=== PATIENT | female | born 1955 | race Caucasian/White ===

== ENCOUNTER → 2020-01-07 14:26 | Outpatient (BNVA) | payer MEDICARE, SELFPAY | PROVIDERS: Family Provider Family Medicine; PCP Family Medicine; Visit Provider Internal Medicine Rheumatology | DX: M32.9 Systemic lupus erythematosus, unspecified (principal); R76.8 Other specified abnormal immunological findings in serum; Z79.899 Other long term (current) drug therapy; M12.00 Chronic postrheumatic arthropathy [Jaccoud], unspecified site | CPT/HCPCS: 99214 ==

== ENCOUNTER 2020-01-08 13:08 | Outpatient (CLI) | payer MEDICARE, SELFPAY ==
--- NOTE | 2020-01-08 13:20 | XR_ITS ---
WS: [id number] FOOT RIGHT TECHNIQUE: 3 views of the right foot CLINICAL INFORMATION: joint pain COMPARISON: None. FINDINGS: Mild soft tissue edema. Hallux valgus. Hammertoe deformities. Joint space narrowing worse involving t he second third and fourth PIP and DIP joints. MTP joints appear normal. Normal metatarsals. Tiny lauryn ntar calcaneal spur. XR/XR foot RT min 3V* [id number] IMPRESSION: 1. Mild hallux valgus. 2. Hammertoe deformities with joint space narrowing worse involving the second third and fourth phalanges.
--- NOTE | 2020-01-08 13:20 | XR_ITS ---
WS: [id number] HAND LEFT TECHNIQUE: 3 views of the left hand CLINICAL INFORMATION: joint pain COMPARISON: None. FINDINGS: Osteopenia. Narrowing of the radiocarpal joint. Advanced degenerative arthritis at the radiocarpal mark int and distal radial ulnar joint. Advanced arthritis the first CMC with deformity and subluxation at the first CMC joint. First metacarpal is subluxed to the level of the scaphoid. Mild joint space harley rowing involving the DIP joints. PIP joints are better preserved. XR/XR hand LT min 3V* [id number] IMPRESSION: 1. Chronic deformity and subluxation of the first metacarpal at the CMC joint with chronic appearing deformity. 2. Advanced degenerative narrowing involving the radiocarpal joint. 3. Joint space narrowing worse involving the DIP joints worse at the second DI P joint. 4. Osteopenia.
--- NOTE | 2020-01-08 13:20 | XR_ITS ---
WS: [id number] FOOT LEFT TECHNIQUE: 3 views of the left foot CLINICAL INFORMATION: joint pain COMPARISON: None. FINDINGS: Osteopenia. No acute fractures. Narrowing of the IP joints. Normal metatarsals. Normal tarsal metatar win alignment. Mild hallux valgus. Osteopenia. XR/XR foot LT min 3V* [id number] IMPRESSION: Mild degenerative arthritis with osteopenia
--- NOTE | 2020-01-08 13:20 | XR_ITS ---
WS: [id number] HAND RIGHT TECHNIQUE: 3 views of the right hand CLINICAL INFORMATION: joint pain COMPARISON: None. FINDINGS: Advanced degenerative arthritis radial carpal joint and distal radial ulnar joint with joint space na rrowing. Osteopenia. Advanced arthritis the first CMC with chronic subluxation at the first, second a nd third MCP joints. Advanced degenerative narrowing involving the CMC joints. PIP and DIP joint narr owing. Mild subluxation at the second DIP. XR/XR hand RT min 3V* [id number] IMPRESSION: 1. Advanced degenerative narrowing at the radiocarpal joint and distal radioul harley joint. 2. Chronic subluxation involving the first second and third MCP joints. 3. IP joint narrowing with subluxation worse involving the second DIP. 4. Advanced degenerative narrowing involving the CMC joints worse involving th e first CMC
== END 2020-01-08 13:09 | disposition home or self-care (01) ==
LOC: WPI 13:13
PROVIDERS: Family Provider Family Medicine; PCP Family Medicine; Visit Provider Internal Medicine Rheumatology
DX: M25.50 Pain in unspecified joint (principal); S63.091A Other subluxation of right wrist and hand, initial encounter; M20.002 Unspecified deformity of left finger(s); S63.102A Unspecified subluxation of left thumb, initial encounter; M85.842 Other specified disorders of bone density and structure, left hand; M19.072 Primary osteoarthritis, left ankle and foot; M85.872 Other specified disorders of bone density and structure, left ankle and foot; M20.11 Hallux valgus (acquired), right foot; M20.41 Other hammer toe(s) (acquired), right foot; X58.XXXA Exposure to other specified factors, initial encounter
CPT/HCPCS: 73130; 73630

== ENCOUNTER → 2020-07-09 13:21 | Outpatient (BNVA) | payer MEDICARE, SELFPAY | PROVIDERS: Family Provider Family Medicine; PCP Family Medicine; Visit Provider Internal Medicine Rheumatology | DX: M32.9 Systemic lupus erythematosus, unspecified (principal); M19.90 Unspecified osteoarthritis, unspecified site; Z79.899 Other long term (current) drug therapy; R76.8 Other specified abnormal immunological findings in serum | CPT/HCPCS: 99214 ==

== ENCOUNTER → 2020-11-09 12:53 | Outpatient (BNVA) | payer MEDICARE, SELFPAY | PROVIDERS: Family Provider Family Medicine; PCP Family Medicine; Visit Provider Internal Medicine Rheumatology | DX: M32.9 Systemic lupus erythematosus, unspecified (principal); M12.00 Chronic postrheumatic arthropathy [Jaccoud], unspecified site; R76.8 Other specified abnormal immunological findings in serum; Z79.899 Other long term (current) drug therapy; M19.90 Unspecified osteoarthritis, unspecified site | CPT/HCPCS: 73562; 99214 ==

== ENCOUNTER 2020-11-09 14:10 | Outpatient (CLI) | payer MEDICARE, SELFPAY ==
--- NOTE | 2020-11-09 14:21 | XRR_ITS ---
PROCEDURE INFORMATION: Exam: XR Right Knee Exam date and time: 11/09/2020 2:28 PM Age: 65 years old Clinical indication: Screening exam; Z79.899 - other retirement (current) drug therapy TECHNIQUE: Imaging protocol: XR Right knee. Views: 3 views. COMPARISON: No relevant prior studies available. FINDINGS: Bones/joints: [id number] medial knee compartment primary osteoarthritis. Mild to moderate patellofemoral primary osteoarthritis. Possible 1.1 x 0.7 cm intra-articular loose body in the superior portion of the patellofemoral joint noted only on the lateral view. Soft tissues: Normal. XR/XR knee RT 3V* [id number] IMPRESSION: 1. [id number] medial knee compartment primary osteoarthritis. 2. Mild to moderate patellofemoral primary osteoarthritis. 3. Possible 1.1 x 0.7 cm intra-articular loose body in the superior portion of the patellofemoral joint noted only on the lateral view.
--- NOTE | 2020-11-09 14:21 | XRR_ITS ---
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 Views: 3 views. COMPARISON: No relevant prior studies available. FINDINGS: Bones/joints: Mild to moderate medial knee compartment primary osteoarthritis. Mild patellofemoral compartment primary osteoarthritis. Soft tissues: Normal. XR/XR knee LT 3V* [id number] IMPRESSION: 1. Mild to moderate medial knee compartment primary osteoarthritis. 2. Mild patellofemoral compartment primary osteoarthritis.
== END 2020-11-09 14:11 | disposition home or self-care (01) ==
LOC: RAD 14:19
PROVIDERS: PCP Family Medicine; Visit Provider Internal Medicine Rheumatology
DX: M19.90 Unspecified osteoarthritis, unspecified site (principal); M32.9 Systemic lupus erythematosus, unspecified; Z79.899 Other long term (current) drug therapy
CPT/HCPCS: 73562

== ENCOUNTER → 2021-03-09 13:39 | Outpatient (BNVA) | payer MEDICARE, SELFPAY | PROVIDERS: PCP Family Medicine; Visit Provider Internal Medicine Rheumatology | DX: M32.9 Systemic lupus erythematosus, unspecified (principal); M12.00 Chronic postrheumatic arthropathy [Jaccoud], unspecified site; M19.90 Unspecified osteoarthritis, unspecified site; Z79.899 Other long term (current) drug therapy; Z71.89 Other specified counseling | CPT/HCPCS: 99214 ==

== ENCOUNTER → 2021-04-12 10:32 | Outpatient (BNVA) | payer MEDICARE, SELFPAY | PROVIDERS: PCP Family Medicine; Visit Provider Internal Medicine Pulmonary Disease | DX: Z01.812 Encounter for preprocedural laboratory examination (principal); Z20.822 Contact with and (suspected) exposure to COVID-19 | CPT/HCPCS: 87635 ==

== ENCOUNTER 2021-04-15 09:54 | Outpatient (CLI) | payer MEDICARE, SELFPAY ==
--- NOTE | 2021-04-15 10:16 | PFTS_ITS ---
Date of Study:04/15/21 Date of Dictation: MECHANICS: Forced vital capacity (FVC) is reduced. Forced expiratory volume in one second (FEV1) is reduced. FEV1/FVC is normal. FLOW VOLUME LOOP: Normal. LUNG VOLUMES: Total lung capacity (TLC) is reduced. Residual volume (RV) is reduced. DIFFUSING CAPACITY FOR CARBON MONOXIDE: Mild reduced. INTERPRETATION: The postbronchodilator spirometry is consistent with moderate restriction. There is no significant postbronchodilator response. Lung volumes are consistent with moderate restriction. Gas exchange (DLCO) is mildly reduced. MTDD
== END 2021-04-15 09:55 | disposition home or self-care (01) ==
LOC: RT 09:54
PROVIDERS: PCP Family Medicine; Visit Provider Internal Medicine Pulmonary Disease
DX: J84.9 Interstitial pulmonary disease, unspecified (principal)
CPT/HCPCS: 94060; 94726; 94729; J7611

== ENCOUNTER 2021-04-20 11:26 | Outpatient (CLI) | payer MEDICARE, SELFPAY ==
[2021-04-20 12:02] LABS: Blood Urea Nitrogen 10 mg/dL (8-23); Glomerular Filtration Rate 62.5 mL/min (90-130)
[2021-04-20] MEDS: iohexol 300 mg/mL 100 mL Btl IV (12:06)
--- NOTE | 2021-04-20 13:00 | CT_ITS ---
WS: [id number] CT ABDOMEN AND PELVIS WITH CONTRAST HISTORY: Follow up of splenic hemangiomas TECHNIQUE: Imaging performed of the abdomen and pelvis with IV contrast. Single phase imaging of the abdomen. Coronal and sagittal reformats are submitted. All CT scans at [facility] use at [address] one of these dose optimization techniques: automated exposure control; mA and/or kV adjustment per patient size (includes targeted exams where dose is matched to clinical indication); or iterative re construction. IV CONTRAST: Omnipaque 300; 95 mL IV. Oral contrast: Yes. DLP: 1146.67 mGycm COMPARISON: Chest CT 2020 Lower thorax: 3 mm nodule at the RIGHT lung base is unchanged. No pneumonia. Heart is normal size. Sm all hiatal hernia. Liver/biliary system: Normal size with no intrahepatic dilatation. Gallbladder: Normal. No gallstones or wall thickening. No pericholecystic fluid. Pancreas: Mild atrophy of the pancreas. No duct dilatation. Spleen: There are a few scattered low-attenuation lesions within the spleen. The largest towards the superior spleen measures 6 mm. These are too small to characterize but are of low attenuation. Adrenal glands: Normal. Right kidney: Normal. Left kidney: Normal. Aorta: Mild atherosclerosis with no aneurysm. Lymphadenopathy: There are a few small mildly hyperemic lymph nodes along the RIGHT common iliac nikunj n. Bilateral hyperemic and minimally prominent obturator lymph nodes. The largest on the RIGHT measur es 1.0 cm. Free fluid: None. GI tract: Diffuse constipation. No obstructive lesions are identified. Normal appendix. Abdominal wall: Unremarkable abdominal wall. No hernia. Pelvis: Urinary bladder is well distended. Uterus is atrophic as expected. Bones: LEFT degenerative rotoscoliosis of the lumbar spine. No destructive bone lesions. CT/CT abdomen pelvis w con* [id number] IMPRESSION: 1. Subcentimeter, nonspecific low-attenuation lesions in the spleen. These are most likely benign. 2. Mild diffuse constipation. 3. Indeterminate bilateral obturator lymph nodes. The largest measures 10 mm o n the RIGHT and is slightly hyperemic. 4. No ascites or free air. 5. Mild diffuse constipation.
== END 2021-04-20 11:27 | disposition home or self-care (01) ==
PROVIDERS: PCP Family Medicine; Visit Provider Internal Medicine
DX: D18.03 Hemangioma of intra-abdominal structures (principal); R63.4 Abnormal weight loss; K59.00 Constipation, unspecified; D73.89 Other diseases of spleen
CPT/HCPCS: 74177; 82565; 84520; Q9967

== ENCOUNTER 2021-06-22 16:55 | Outpatient (CLI) | payer MEDICARE, SELFPAY ==
[2021-06-22 17:28] LABS: Basophils % 0.7 %; Eosinophils # 0.1 10^3/uL (0.0-0.8); Eosinophils % 0.9 %; Hemoglobin 13.8 g/dL (11.5-15.3); Lymphocytes # 1.2 10^3/uL (0.8-4.8); Mean Corpuscular HGB Conc 32.1 g/dL (30.0-36.0); Mean Corpuscular Hemoglobin 29.9 pg (28.0-34.0); Mean Corpuscular Volume 93.1 fl (81-99); Mean Platelet Volume 9.6 fL (7.4-10.4); Monocytes # 0.3 10^3/uL (0.2-0.9); Monocytes % 4.9 %; Neutrophils # 4.19 10^3/uL (1.8-7.7); Neutrophils % 72.5 %; Nucleated Red Blood Cells % 0 %; Platelet Count 190 10^3/cmm (130-400); Red Blood Count 4.62 10^6/uL (4.1-5.3); Red Cell Distribution Width 12.8 % (12.1-15.1); White Blood Count 5.8 10^3/uL (4.0-10.0)
[2021-06-22 17:50] LABS: Alanine Aminotransferase 32 U/L (0-33); Albumin Level 4.6 g/dL (3.5-5.2); Alkaline Phosphatase 109 IU/L (35-105); Aspartate Amino Transferase 45 U/L (0-32); C Reactive Protein 2.9 mg/L (0.0-4.9); Glomerular Filtration Rate 62.5 mL/min (90-130); Total Bilirubin 0.4 mg/dL (0.15-1.2); Total Protein 7.6 g/dL (6.6-8.7)
== END 2021-06-22 16:56 | disposition home or self-care (01) ==
PROVIDERS: PCP Family Medicine; Visit Provider Internal Medicine Rheumatology
DX: M06.9 Rheumatoid arthritis, unspecified (principal); Z79.899 Other long term (current) drug therapy
CPT/HCPCS: 80076; 82565; 85025; 86140

== ENCOUNTER → 2021-09-14 09:39 | Outpatient (BNVA) | payer MEDICARE, SELFPAY | PROVIDERS: PCP Family Medicine; Visit Provider Internal Medicine Rheumatology | DX: M32.9 Systemic lupus erythematosus, unspecified (principal); Z79.899 Other long term (current) drug therapy; M12.041 Chronic postrheumatic arthropathy [Jaccoud], right hand; M12.04 Chronic postrheumatic arthropathy [Jaccoud], hand; I73.00 Raynaud's syndrome without gangrene; Z71.89 Other specified counseling | CPT/HCPCS: 99214 ==

== ENCOUNTER → 2021-10-25 13:06 | Outpatient (BNVA) | payer MEDICARE, SELFPAY | PROVIDERS: PCP Family Medicine; Visit Provider Internal Medicine Pulmonary Disease | DX: J84.89 Other specified interstitial pulmonary diseases (principal); M19.90 Unspecified osteoarthritis, unspecified site; I48.91 Unspecified atrial fibrillation; M32.9 Systemic lupus erythematosus, unspecified; M35.9 Systemic involvement of connective tissue, unspecified; R06.00 Dyspnea, unspecified; Z71.89 Other specified counseling; Z79.899 Other long term (current) drug therapy; I10 Essential (primary) hypertension; E78.5 Hyperlipidemia, unspecified | CPT/HCPCS: 99214 ==

== ENCOUNTER 2021-11-23 12:40 | Outpatient (CLI) | payer MEDICARE, SELFPAY ==
[2021-11-23 13:23] LABS: Basophils % 0.7 %; Eosinophils # 0.1 10^3/uL (0.0-0.8); Eosinophils % 2.4 %; Hematocrit 38.7 % (37.0-47.0); Hemoglobin 12.6 g/dL (11.5-15.3); Lymphocytes # 1.5 10^3/uL (0.8-4.8); Lymphocytes % 27.1 %; Mean Corpuscular HGB Conc 32.6 g/dL (30.0-36.0); Mean Corpuscular Volume 89.2 fl (81-99); Mean Platelet Volume 9.2 fL (7.4-10.4); Monocytes # 0.4 10^3/uL (0.2-0.9); Neutrophils # 3.35 10^3/uL (1.8-7.7); Neutrophils % 61.3 %; Nucleated Red Blood Cells % 0 %; Platelet Count 273 10^3/cmm (130-400); Red Blood Count 4.34 10^6/uL (4.1-5.3); Red Cell Distribution Width 13.2 % (12.1-15.1); White Blood Count 5.5 10^3/uL (4.0-10.0)
[2021-11-23 13:41] LABS: Alanine Aminotransferase 46 U/L (0-33); Albumin Level 4.2 g/dL (3.5-5.2); Alkaline Phosphatase 125 IU/L (35-105); Aspartate Amino Transferase 39 U/L (0-32); C Reactive Protein 8.7 mg/L (0.0-4.9); Globulin 3.5 g/dL (1.3-4.6); Glomerular Filtration Rate 71.5 mL/min (90-130); Total Bilirubin 0.3 mg/dL (0.15-1.2); Total Protein 7.7 g/dL (6.6-8.7)
== END 2021-11-23 12:41 | disposition home or self-care (01) ==
PROVIDERS: PCP Family Medicine; Visit Provider Internal Medicine Rheumatology
DX: M32.9 Systemic lupus erythematosus, unspecified (principal); Z79.899 Other long term (current) drug therapy
CPT/HCPCS: 80076; 82565; 85025; 86140

== ENCOUNTER 2021-12-07 09:39 | Outpatient (CLI) | payer MEDICARE, SELFPAY ==
--- NOTE | 2021-12-07 09:53 | MM_ITS ---
WS: [id number] BILATERAL SCREENING DIGITAL BREAST TOMOSYNTHESIS MAMMOGRAM WITH CAD HISTORY: SCREENING COMPARISON: 03/12/2020 and 02/19/2019 Bilateral CC and MLO views with tomosynthesis and synthetic mammography submitted. Computer aided det ection analyzed. Breast composition: There are scattered areas of fibroglandular density. No suspicious masses, microc alcifications or architectural distortion. Benign calcifications in each breast. MM/[place] [id number] IMPRESSION: BI-RADS: 2-Benign FOLLOW UP: 1 Year Follow-up
== END 2021-12-07 09:40 | disposition home or self-care (01) ==
PROVIDERS: PCP Family Medicine; Visit Provider Family Medicine
DX: Z12.31 Encounter for screening mammogram for malignant neoplasm of breast (principal)
CPT/HCPCS: 77063; 77067

== ENCOUNTER → 2022-01-12 10:12 | Outpatient (BNVA) | payer MEDICARE, SELFPAY | PROVIDERS: PCP Family Medicine; Visit Provider Internal Medicine Rheumatology | DX: M32.9 Systemic lupus erythematosus, unspecified (principal); M06.9 Rheumatoid arthritis, unspecified; J84.89 Other specified interstitial pulmonary diseases; M35.9 Systemic involvement of connective tissue, unspecified; I73.00 Raynaud's syndrome without gangrene; M12.00 Chronic postrheumatic arthropathy [Jaccoud], unspecified site; Z79.899 Other long term (current) drug therapy | CPT/HCPCS: 99214 ==

== ENCOUNTER 2022-01-13 11:01 | Outpatient (CLI) | payer MEDICARE, SELFPAY ==
--- NOTE | 2022-01-13 12:45 | USCV_ITS ---
Jannet Rose Age: 66 Gender: F : 1955 Exam Date: 01/13/2022 12:14 Ordering Phys: Rolo Hodges MD Technologist: SHARRI Exam Location: [facility] – [place] Indication: DYSPNEA ON EXERTION BP: 128 / 57 HR: 68 Rhythm: Atrial fibrillation Technical Quality: Adequate MEASUREMENTS (Male / Female) Normal Values 2D ECHO LV Diastolic Diameter PLAX 3.5 cm 4.2 - 5.9 / 3.9 - 5.3 cm LV Systolic Diameter PLAX 2.2 cm IVS Diastolic Thickness 1.5 cm 0.6 - 1.0 / 0.6 - 0.9 cm IVS Systolic Thickness 1.9 cm LVPW Diastolic Thickness 1.0 cm 0.6 - 1.0 / 0.6 - 0.9 cm LVPW Systolic Thickness 1.5 cm LVOT Diameter 2.0 cm LV Ejection Fraction 2D Teich 69.6 % LV Ejection Fraction MOD 2C 62.6 % LV Ejection Fraction 2C AL 67.2 % LA Diameter 3.8 cm LA Width 3.5 cm LA Height 4.7 cm RA Width 2.3 cm RA Height 4.4 cm Aorta at Sinotubular Diameter 1.8 cm IVC Diameter 1.3 cm M-MODE Aortic Annulus Diameter 2.5 cm LA Ao Ratio MM 1.5 MV E Point Septal Separation 0.4 cm DOPPLER AV Peak Velocity 105.0 cm/s LVOT Peak Velocity 96.0 cm/s AV Area Cont Eq vti 2.2 cm squared AV Area Cont Eq pk 2.8 cm squared MV Peak Velocity 80.0 cm/s MV Area PHT 4.2 cm squared MV E' Velocity 48.0 cm/s Mitral E to MV E' Ratio 11.4 Mitral E to LV E' Lateral Ratio 9.6 Mitral E to LV E' Septal Ratio 14.0 TR Peak Velocity 166.1 cm/s TR Peak Gradient 11.0 mmHg TR Mean Velocity 119.5 cm/s TR Mean Gradient 6.4 mmHg TR Velocity Time Integral 37.4 cm TV Peak E Velocity 60.0 cm/s Right Atrial Pressure 3.0 mmHg Pulmonary Artery Systolic Pressu 14.0 mmHg PV Peak Velocity 92.0 cm/s RV Acceleration Time 0.1 s RV Ejection Time 0.3 s RV AcT/ET 0.3 FINDINGS Left Ventricle Normal left ventricular size and systolic function, EF 66 %. No regional wall motion abnormalities. Grade I/IV diastolic dysfunction (abnormal relaxation filling pattern), normal to mildly elevated filling pressures. Right Ventricle The right ventricle is normal in size and function. Right Atrium The right atrium is normal in size. Left Atrium Mildly increased left atrial size. Mitral Valve Mild mitral valve regurgitation. Aortic Valve Trace aortic valve regurgitation. Tricuspid Valve No gross abnormalities noted Pulmonic Valve Mild pulmonary valve regurgitation. Pericardium No pericardial effusion. Aorta Normal ascending aorta dimension. IVC The inferior vena cava pulmonary and hepatic veins appear normal. CONCLUSIONS Normal left ventricular size and systolic function, EF 66 %. No regional wall motion abnormalities. Grade I/IV diastolic dysfunction (abnormal relaxation filling pattern), normal to mildly elevated filling pressures. Mildly increased left atrial size. Mild mitral valve regurgitation. Trace aortic valve regurgitation. Mild pulmonary valve regurgitation. Trace of tricuspid debilitation Estimated PA pressure of 14 mmHg. This could be an underestimation because of the poor Doppler signals There is no pericardial effusion. There are no intracardiac masses. No similar previous studies are available for comparison Dr Norma Soni MD [facility] (Electronically Signed) Final Date: 14 January 2022 08:22 S
--- NOTE | 2022-01-13 14:16 | PFTS_ITS ---
Date of Study:01/13/22 Date of Dictation: 01/17/2022 MECHANICS: Postbronchodilator forced vital capacity (FVC) is reduced. Postbronchodilator forced expiratory volume in one second (FEV1) is moderately reduced. FEV1/FVC is normal. There is no significant response to bronchodilator. FLOW VOLUME LOOP: Normal. LUNG VOLUMES: Total lung capacity (TLC) is reduced. Residual volume (RV) is reduced. DIFFUSING CAPACITY FOR CARBON MONOXIDE: Mildly reduced . INTERPRETATION: The postbronchodilator spirometry showed moderate restriction.? There is no significant postbronchodilator response.? Lung volumes suggestive of moderate restriction.? There is mild gas transfer defect.? Constellation of findings consistent with restrictive lung disease with mild gas transfer defect- suggestive of early interstitial lung disease. Clinical correlation recommended. [facility]
== END 2022-01-13 11:02 | disposition home or self-care (01) ==
LOC: RT 11:01
PROVIDERS: PCP Family Medicine; Visit Provider Internal Medicine Pulmonary Disease
DX: I48.91 Unspecified atrial fibrillation (principal); R06.00 Dyspnea, unspecified; J84.89 Other specified interstitial pulmonary diseases; M35.9 Systemic involvement of connective tissue, unspecified; I08.0 Rheumatic disorders of both mitral and aortic valves
CPT/HCPCS: 93306; 94060; 94618; 94726; 94729; J7611

== ENCOUNTER 2022-03-31 13:03 | Outpatient (CLI) | payer MEDICARE, SELFPAY ==
[2022-03-31 13:46] LABS: Basophils % 0.4 %; Eosinophils # 0.1 10^3/uL (0.0-0.8); Eosinophils % 1.3 %; Hematocrit 44.3 % (37.0-47.0); Hemoglobin 13.9 g/dL (11.5-15.3); Lymphocytes # 1.2 10^3/uL (0.8-4.8); Lymphocytes % 22.3 %; Mean Corpuscular HGB Conc 31.4 g/dL (30.0-36.0); Mean Corpuscular Hemoglobin 29.4 pg (28.0-34.0); Mean Corpuscular Volume 93.7 fl (81-99); Mean Platelet Volume 9.4 fL (7.4-10.4); Monocytes # 0.4 10^3/uL (0.2-0.9); Monocytes % 6.8 %; Neutrophils # 3.85 10^3/uL (1.8-7.7); Nucleated Red Blood Cells % 0 %; Platelet Count 201 10^3/cmm (130-400); Red Blood Count 4.73 10^6/uL (4.1-5.3); Red Cell Distribution Width 12.3 % (12.1-15.1); White Blood Count 5.6 10^3/uL (4.0-10.0)
[2022-03-31 14:08] LABS: Alanine Aminotransferase 28 U/L (0-33); Albumin Level 4.3 g/dL (3.5-5.2); Alkaline Phosphatase 106 U/L (35-105); Aspartate Amino Transferase 36 U/L (0-32); C Reactive Protein 4.2 mg/L (0.0-4.9); Globulin 3.8 g/dL (1.3-4.6); Glomerular Filtration Rate 62.3 mL/min (90-130); Total Bilirubin 0.5 mg/dL (0.15-1.2); Total Protein 8.1 g/dL (6.6-8.7)
[2022-03-31 14:09] LABS: Urine Creatinine 34 mg/dL (28-217); Urine Protein Random 6 mg/dL
[2022-03-31 14:17] LABS: Urine Appearance Clear (CLEAR); Urine Color Yellow (Yellow); pH Urine 5 (5-7)
[2022-03-31 14:18] LABS: Bilirubin Urine Neg (Negative); Blood Urine 2+ (Negative); Glucose Urine UA Norm (Normal); Ketones Urine Negative (Negative); Leukocyte Esterase Urine Negative (Negative); Nitrate Urine Negative (Negative); Protein Urine Neg (Negative); Urobilinogen Urine Norm (Negative)
[2022-03-31 14:19] LABS: Add Urine Culture? No; Bacteria Urine TRACE /hpf; RBC Urine 0-4 /hpf (0-2); Squamous Epithelial Cell Urine 0-4 /hpf (0-5)
== END 2022-03-31 13:04 | disposition home or self-care (01) ==
LOC: LAB 13:05
PROVIDERS: PCP Family Medicine; Visit Provider Internal Medicine Rheumatology
DX: M32.9 Systemic lupus erythematosus, unspecified (principal); Z79.899 Other long term (current) drug therapy
CPT/HCPCS: 36415; 80076; 81001; 82565; 82570; 84156; 85025; 86140

== ENCOUNTER → 2022-04-13 11:17 | Outpatient (BNVA) | payer MEDICARE, SELFPAY | PROVIDERS: PCP Family Medicine; Visit Provider Internal Medicine Rheumatology | DX: M32.9 Systemic lupus erythematosus, unspecified (principal); M19.90 Unspecified osteoarthritis, unspecified site; Z79.899 Other long term (current) drug therapy; Z71.89 Other specified counseling; I73.00 Raynaud's syndrome without gangrene; M54.50 Low back pain, unspecified; G89.29 Other chronic pain | CPT/HCPCS: 72040; 72072; 99214 ==

== ENCOUNTER → 2022-06-01 10:48 | Outpatient (BNVA) | payer MEDICARE, SELFPAY | PROVIDERS: PCP Family Medicine; Visit Provider Internal Medicine Pulmonary Disease | DX: J84.89 Other specified interstitial pulmonary diseases (principal); M35.9 Systemic involvement of connective tissue, unspecified; M32.9 Systemic lupus erythematosus, unspecified; M19.90 Unspecified osteoarthritis, unspecified site; I48.91 Unspecified atrial fibrillation; Z79.899 Other long term (current) drug therapy; Z71.89 Other specified counseling | CPT/HCPCS: 99214 ==

== ENCOUNTER → 2022-07-27 12:15 | Outpatient (BNVA) | payer MEDICARE, SELFPAY | PROVIDERS: PCP Family Medicine; Visit Provider Internal Medicine Rheumatology | DX: M32.9 Systemic lupus erythematosus, unspecified (principal); M19.011 Primary osteoarthritis, right shoulder; M48.02 Spinal stenosis, cervical region; M47.812 Spondylosis without myelopathy or radiculopathy, cervical region; M25.711 Osteophyte, right shoulder; I65.23 Occlusion and stenosis of bilateral carotid arteries; I73.00 Raynaud's syndrome without gangrene; G89.29 Other chronic pain; M54.50 Low back pain, unspecified; Z79.899 Other long term (current) drug therapy | CPT/HCPCS: 72040; 73030; 80076; 81001; 82565; 82570; 84156; 85025; 86140; 99214 ==

== ENCOUNTER → 2022-08-01 14:42 | Outpatient (BNVA) | payer MEDICARE, SELFPAY | PROVIDERS: PCP Family Medicine; Visit Provider Internal Medicine Rheumatology | DX: M25.511 Pain in right shoulder (principal); M19.90 Unspecified osteoarthritis, unspecified site; M06.9 Rheumatoid arthritis, unspecified; Z71.89 Other specified counseling | CPT/HCPCS: 20610; J1030 ==

== ENCOUNTER → 2022-10-26 10:15 | Outpatient (BNVA) | payer MEDICARE, SELFPAY | PROVIDERS: PCP Family Medicine; Visit Provider Internal Medicine Rheumatology | DX: M32.9 Systemic lupus erythematosus, unspecified (principal); Z79.899 Other long term (current) drug therapy; M19.90 Unspecified osteoarthritis, unspecified site; Z71.89 Other specified counseling; I73.00 Raynaud's syndrome without gangrene; M54.50 Low back pain, unspecified; G89.29 Other chronic pain | CPT/HCPCS: 36415; 80076; 82565; 85025; 86140; 99214 ==

== ENCOUNTER 2022-12-15 13:01 | Outpatient (CLI) | payer MEDICARE, SELFPAY ==
--- NOTE | 2022-12-15 13:13 | MM_ITS ---
WS: [id number] BILATERAL 3D TOMOSYNTHESIS DIGITAL SCREENING MAMMOGRAPHY WITH CAD CLINICAL INFORMATION: SCREENING HISTORY: Screening mammogram. No current complaints. COMPARISON: 2021 TECHNIQUE: Bilateral CC and MLO views. FINDINGS: Scattered fibroglandular densities bilaterally. No suspicious focal mass, asymmetry, calcifications, or architectural distortion. No evidence of malignancy. Punctate and lucent centered calcifications. MM/[place] [id number] IMPRESSION: BI-RADS: 2-Benign FOLLOW UP: 1 Year Follow-up Recommend return to annual screening mammography.
== END 2022-12-15 13:02 | disposition home or self-care (01) ==
PROVIDERS: PCP Family Medicine; Visit Provider Family Medicine
DX: Z12.31 Encounter for screening mammogram for malignant neoplasm of breast (principal)
CPT/HCPCS: 77063; 77067